=== PATIENT | male | born 1965 | race Two or more races ===

== ENCOUNTER 2017-06-12 17:24 | Emergency (ER) | payer OTHER ==
[~2017-06-12] VITALS: Ht 185.4 cm; Wt 136.1 kg
[2017-06-12] MEDS ORDERED: GAS-X62.5 MG PO (17:30)
[2017-06-12 17:45] VITALS: BP 130/86
[2017-06-12] MEDS ORDERED: Aspirin Baby 81mg ORAL ONE (17:45)
[2017-06-12 19:01] LABS: BASOPHILS % (AUTO) 1.2 % (0.0-2.0); EOSINOPHILS % (AUTO) 1.9 % (0.0-3.0); MEAN CORPUSCULAR HEMOGLOBIN 31.2 PG (27.0-31.0); MEAN CORPUSCULAR VOLUME 92 FL (80-99); MEAN PLATELET VOLUME 8.6 FL (6.5-10.1); MONOCYTES % (AUTO) 7.7 % (1.0-10.0); NEUTROPHILS % (AUTO) 49.2 % (45.0-75.0); PLATELET COUNT 224 K/UL (150-450); RED BLOOD COUNT 4.78 M/UL (4.70-6.10); RED CELL DISTRIBUTION WIDTH 11.8 % (11.6-14.8); WHITE BLOOD COUNT 8.9 K/UL (4.8-10.8)
[2017-06-12 19:20] LABS: TROPONIN I < 0.30 ng/mL (<=0.30)
[2017-06-12 19:22] LABS: ALANINE AMINOTRANSFERASE 94 U/L (3-41); ALBUMIN/GLOBULIN RATIO 1.1 (1.0-2.7); ANION GAP 14 (5-15); ASPARTATE AMINO TRANSFERASE 66 U/L (5-40); CALCIUM 9.4 mg/dL (8.6-10.2); CARBON DIOXIDE 24 mEQ/L (20-30); CHLORIDE 99 mEQ/L (98-107); CREATININE 1.2 mg/dL (0.7-1.2); GLOMERULAR FILTRATION RATE > 60 mL/min (>60); HEMOLYSIS 77; POTASSIUM 3.7 mEQ/L (3.4-4.9); SODIUM 137 mEQ/L (135-145); TOTAL PROTEIN 7.9 g/dL (6.6-8.7)
[2017-06-12 19:33] LABS: CKMB 4.4 ng/mL (< 6.7)
[2017-06-12 21:12] VITALS: BP 112/78
--- NOTE | 2017-06-12 21:27 | Emergency Room Report ---
History of Present Illness General Chief Complaint: Chest Pain Source: Patient Present Illness HPI This patient has several different complaints. He states that this has had ongoing anxiety for the past couple weeks. He states that he notes that he has had a lot of anxiety lately. He states that he has stress related to financial problems. He states that he is the sole provider for his family. He denies recent illness. Denies cough or congestion. He notes that he has also had some indigestion and stomach bloating. He denies nausea or vomiting. He states that he has been on acid reflux medication. He hasn't seen his primary care physician for this. He states that he takes the acid reflux medication occasionally when he feels like he is having a flare. He denies abdominal pain. He has had normal bowel movements. He has no other complaints. Allergies: Coded Allergies: No Known Allergies (Unverified , 06/12/17) Patient History Past Medical History: HTN, GERD Social History: Denies: smoking, alcohol use, drug use Reviewed Nursing Documentation: PMH: Agreed, PSxH: Agreed Nursing Documentation-PMH Past Medical History: No Stated History Review of Systems All Other Systems: negative except mentioned in HPI Physical Exam Vital Signs Date Time Temp Pulse Resp B/P (MAP) Pulse Ox O2 Delivery O2 Flow Rate FiO2 06/12/17 17:25 76 18 Room Air 06/12/17 17:27 98.1 160/80 98 Sp02 EP Interpretation: reviewed, normal General Appearance: no apparent distress, alert, GCS 15, non-toxic Head: normocephalic, atraumatic Eyes: bilateral eye normal inspection, bilateral eye PERRL ENT: hearing grossly normal, normal pharynx, no angioedema, normal voice Neck: full range of motion, supple/symm/no masses Respiratory: chest non-tender, lungs clear, normal breath sounds, speaking full sentences Cardiovascular #1: regular rate, rhythm, no edema Gastrointestinal: normal bowel sounds, non tender, soft, non-distended, no guarding, no rebound, hernia - Small reproducible umbilcal hernia. Rectal: deferred Musculoskeletal: back normal, gait/station normal, normal range of motion, non- tender Neurologic: alert, oriented x3, responsive, motor strength/tone normal, sensory intact, speech normal Psychiatric: judgement/insight normal, memory normal, mood/affect normal, no suicidal/homicidal ideation Skin: normal color, no rash, warm/dry, well hydrated Medical Decision Making Diagnostic Impression: Primary Impression: Chest pain Additional Impressions: Transaminitis Mild dietary indigestion ER Course The patient is low risk chest pain. I considered PE, PTX, acute coronary syndrome, aortic dissection, pneumonia which is unlikely given hx, CE, CXR. Low risk PERC and Wells. Negative work-up to include Cardiac enzymes, CXR, EKG. Given history and PE I do not feel that this patient needs further evaluation at this time. The patient was instructed to follow-up closely with their PCP and close return precautions were given. Laboratory Tests Test 06/12/17 17:15 White Blood Count 8.9 K/UL (4.8-10.8) Red Blood Count 4.78 M/UL (4.70-6.10) Hemoglobin 14.9 G/DL (14.2-18.0) Hematocrit 43.8 % (42.0-52.0) Mean Corpuscular Volume 92 FL (80-99) Mean Corpuscular Hemoglobin 31.2 PG (27.0-31.0) H Mean Corpuscular Hemoglobin Concent 34.0 G/DL (32.0-36.0) Red Cell Distribution Width 11.8 % (11.6-14.8) Platelet Count 224 K/UL (150-450) Mean Platelet Volume 8.6 FL (6.5-10.1) Neutrophils (%) (Auto) 49.2 % (45.0-75.0) Lymphocytes (%) (Auto) 40.0 % (20.0-45.0) Monocytes (%) (Auto) 7.7 % (1.0-10.0) Eosinophils (%) (Auto) 1.9 % (0.0-3.0) Basophils (%) (Auto) 1.2 % (0.0-2.0) Sodium Level 137 mEQ/L (135-145) Potassium Level 3.7 mEQ/L (3.4-4.9) Chloride Level 99 mEQ/L (98-107) Carbon Dioxide Level 24 mEQ/L (20-30) Anion Gap 14 (5-15) Blood Urea Nitrogen 12 mg/dL (7-23) Creatinine 1.2 mg/dL (0.7-1.2) Estimate Glomerular Filtration Rate > 60 mL/min (>60) Glucose Level 87 mg/dL (74-106) Calcium Level 9.4 mg/dL (8.6-10.2) Total Bilirubin 0.4 mg/dL (0.0-1.2) Aspartate Amino Transferase (AST) 66 U/L (5-40) H Alanine Aminotransferase (ALT) 94 U/L (3-41) H Alkaline Phosphatase 107 U/L (40-129) Total Creatine Kinase 191 U/L (38-174) H Creatine Kinase MB 4.4 ng/mL (< 6.7) Creatine Kinase MB Relative Index 2.3 Troponin I < 0.30 ng/mL (<=0.30) Total Protein 7.9 g/dL (6.6-8.7) Albumin 4.2 g/dL (3.5-5.2) Globulin 3.7 g/dL Albumin/Globulin Ratio 1.1 (1.0-2.7) EKG Diagnostic Results Rate: normal Rhythm: NSR ST Segments: no acute changes Rhythm Strip Diag. Results EP Interpretation: yes Rate: 60's Rhythm: NSR, no PVC's, no ectopy Chest X-Ray Diagnostic Results Chest X-Ray Diagnostic Results : Chest X-Ray Ordered: Yes # of Views/Limited/Complete: 1 View Indication: Chest Pain EP Interpretation: Yes Interpretation: no consolidation, no effusion, no pneumothorax, no acute cardiopulmonary disease Impression: No acute disease Last Vital Signs Date Time Temp Pulse Resp B/P (MAP) Pulse Ox O2 Delivery O2 Flow Rate FiO2 06/12/17 17:45 76 18 130/86 99 Room Air 06/12/17 17:27 98.1 Disposition: HOME, SELF-CARE Condition: Improved Referrals: [facility]ERR[facility] (PCP) Patient Instructions: Nonspecific Chest Pain BRIANA REYES D.O. Jun 12, 2017 21:27
[2017-06-12 21:41] VITALS: BP 112/78
--- NOTE | 2017-06-13 09:51 | Diagnostic Imaging Report ---
Indication: Chest pain Technique: One view of the chest Comparison: none Findings: Lungs and pleural spaces are clear. Heart size is normal Impression: No acute process
--- NOTE | 2017-06-13 16:07 | Cardiology Report ---
APPROVED REPORT EKG Measurement Heart [id number] Normal sinus rhythm with sinus arrhythmia Normal ECG
== END 2017-06-12 21:42 | disposition home or self-care (01) ==
LOC: EMR 18:27
DX: R07.9 Chest pain, unspecified (principal); R79.89 Other specified abnormal findings of blood chemistry; K30 Functional dyspepsia; I10 Essential (primary) hypertension; K21.9 Gastro-esophageal reflux disease without esophagitis
CPT/HCPCS: 36415; 71010; 80053; 82550; 82553; 84484; 85025; 93005; 96360; 99284